=== PATIENT | male | born 1935 | race Caucasian/White ===

== ENCOUNTER → 2017-03-10 | Outpatient (CLI) | payer MEDICARE | LOC: COL.VAS 10:46 | DX: I31.3 Pericardial effusion (noninflammatory) (principal) ==

== ENCOUNTER → 2017-08-15 | Outpatient (CLI) | payer MEDICARE | LOC: MC.RAD 07:12 | DX: N64.4 Mastodynia (principal) ==

== ENCOUNTER 2018-01-21 11:01 | Day surgery (SDC) | payer MEDICARE ==
[~2018-01-21] VITALS: Ht 157.5 cm; Wt 82.1 kg
[2018-01-21] MEDS ORDERED: COREG 25MG25 MG/TAB PO (11:47)
[2018-01-21] MEDS ORDERED: CELEBREX 200MG200 MG PO ×2 (11:49)
[2018-01-21] MEDS ORDERED: LASIX 40MG TABL40 MG PO (11:50)
[2018-01-21] MEDS ORDERED: ASPIRIN 32325 MG/TA1 PO (11:51)
[2018-01-21] MEDS ORDERED: COZAAR100 MG PO (11:52)
[2018-01-21] MEDS ORDERED: K-DUR20 MEQ PO (11:52)
[2018-01-21] MEDS ORDERED: GLUCOPHAGE1000 MG PO (11:53)
[2018-01-21] MEDS ORDERED: CRESTOR5 MG PO (11:53)
[2018-01-21] MEDS ORDERED: NORVASC 5MG5 MG/TAB PO (11:54)
[2018-01-21] MEDS ORDERED: PROSCAR 5MG5 MG PO (11:54)
[2018-01-21] MEDS ORDERED: EPA FISH OIL1 SGL PO (11:55)
[2018-01-21 12:18] LABS: HEMOGLOBIN 12.5 g/dl (13.5-18.0); MEAN CELL VOLUME 93 fl (80.0-100.0); MEAN CORPUSCULAR HEMOGLOBIN 32 pg (27.0-31.0); MEAN CORPUSCULAR HGB CONC 34 g/dl (33.0-37.0); MEAN PLATELET VOLUME 10.2 fl (7.4-10.4); PLATELET COUNT 157 K/mm3 (130-400); RED BLOOD COUNT 3.93 M/mm3 (4.20-5.60); REDCELL DISTRIBUTION WIDTH-CV 12.6 % (11.5-14.5)
[2018-01-21 12:19] LABS: HEMATOCRIT 36.7 % (42.0-52.0)
[2018-01-21 12:28] LABS: INR 1.1 (0.8-3.0); PROTHROMBIN TIME 12.6 SECONDS (9.7-12.8)
[2018-01-21 13:00] VITALS: BP 164/85; PULSE 64; TEMP 97.6
[2018-01-21 13:26] LABS: CALCIUM 9.1 mg/dL (8.4-10.2); CREATININE, serum 0.99 mg/dL (0.66-1.25); POTASSIUM 4.2 mmol/L (3.4-5.0)
[2018-01-21 13:47] VITALS: BP 181/82; PULSE 70
[2018-01-21 15:05] VITALS: BP 154/69; PULSE 78
[2018-01-21 15:35] VITALS: BP 173/80; PULSE 77
[2018-01-21 16:35] VITALS: BP 121/90; PULSE 76
[2018-01-21 20:44] VITALS: BP 124/54; PULSE 64; TEMP 97.4
[2018-01-22 00:52] VITALS: BP 157/64; PULSE 66; TEMP 97.4
[2018-01-22 04:31] VITALS: BP 113/68; BP 153/65; BP 167/70; PULSE 69; PULSE 79; TEMP 98.1; TEMP 98.2
[2018-01-22 07:26] LABS: BASO % 0.4 % (0.0-2.0); EOS # 0.2 (0.0-0.7); EOS % 3.3 % (0-4.0); GRAN # 3.8 (1.4-6.5); GRAN % 68.9 % (42.2-75.2); HEMATOCRIT 37.9 % (42.0-52.0); HEMOGLOBIN 12.6 g/dl (13.5-18.0); LYMPH # 0.9 (1.2-3.4); LYMPH % 16.2 % (20.0-51.0); MEAN CELL VOLUME 92 fl (80.0-100.0); MEAN CORPUSCULAR HEMOGLOBIN 31 pg (27.0-31.0); MEAN CORPUSCULAR HGB CONC 33 g/dl (33.0-37.0); MEAN PLATELET VOLUME 9.7 fl (7.4-10.4); MONO # 0.6 (0.1-0.6); MONO % 10.5 % (1.7-9.3); PLATELET COUNT 147 K/mm3 (130-400); REDCELL DISTRIBUTION WIDTH-CV 12.9 % (11.5-14.5)
[2018-01-22 07:39] LABS: CALCIUM 9.2 mg/dL (8.4-10.2); CREATININE, serum 0.93 mg/dL (0.66-1.25); MAGNESIUM 1.8 mg/dL (1.6-2.3); POTASSIUM 4.3 mmol/L (3.4-5.0)
[2018-01-22 07:42] LABS: INR 1.1 (0.8-3.0); PROTHROMBIN TIME 12.6 SECONDS (9.7-12.8)
[2018-01-22 07:49] VITALS: BP 155/65; PULSE 67; TEMP 97.6
[2018-01-22] MEDS ORDERED: CLEOCIN HCL300 MG PO (10:53)
== END 2018-01-22 12:29 | disposition home or self-care (01) ==
LOC: COL.CAR 11:01 → MEDICAL 15:25 → COL.CAR 01-22 12:29
PROVIDERS: Internal Medicine Cardiovascular Disease
DX: I49.5 Sick sinus syndrome (principal); I48.0 Paroxysmal atrial fibrillation; E11.9 Type 2 diabetes mellitus without complications; E78.5 Hyperlipidemia, unspecified; I25.10 Atherosclerotic heart disease of native coronary artery without angina pectoris; I11.0 Hypertensive heart disease with heart failure; I50.32 Chronic diastolic (congestive) heart failure; Z88.0 Allergy status to penicillin; Z82.49 Family history of ischemic heart disease and other diseases of the circulatory system; Z87.891 Personal history of nicotine dependence
CPT/HCPCS: OP; J2250; J3010; J3370; J7030; J7050

== ENCOUNTER 2019-05-03 12:45 | Outpatient (RCR) | payer MEDICARE ==
[~2019-05-03 12:45] MED LIST: ASPIRIN 32325 MG/TA1 PO; CELEBREX 200MG200 MG PO; CLEOCIN HCL300 MG PO; COREG 25MG25 MG/TAB PO; COZAAR100 MG PO; CRESTOR5 MG PO; EPA FISH OIL1 SGL PO; GLUCOPHAGE1000 MG PO; K-DUR20 MEQ PO; LASIX 40MG TABL40 MG PO; NORVASC 5MG5 MG/TAB PO; PROSCAR 5MG5 MG PO
== END 2019-06-11 16:09 | disposition home or self-care (01) ==
LOC: WSOT 12:45
DX: S62.317A Displaced fracture of base of fifth metacarpal bone, left hand, initial encounter for closed fracture (principal); W19.XXXA Unspecified fall, initial encounter

== ENCOUNTER → 2020-08-03 | Outpatient (CLI) | payer MEDICARE | LOC: COL.RAD 07:50 | DX: J98.6 Disorders of diaphragm (principal); I51.7 Cardiomegaly; Z95.0 Presence of cardiac pacemaker ==

== ENCOUNTER → 2020-08-28 | Outpatient (CLI) | payer MEDICARE | LOC: COL.RAD 13:12 | DX: N18.32 Chronic kidney disease, stage 3b (principal) ==

== ENCOUNTER 2020-12-30 23:25 | Emergency (ER) | payer MEDICARE ==
[~2020-12-30] VITALS: Ht 157.5 cm; Wt 84.5 kg
[2020-12-30 23:34] VITALS: TEMP 98.2
[2020-12-31 00:17] LABS: BASO % 0.3 % (0.0-2.0); EOS # 0.2 K/mm3 (0.0-0.7); GRAN % 71.2 % (42.2-75.2); HEMOGLOBIN 11.3 g/dl (13.5-18.0); LYMPH # 0.9 K/mm3 (1.2-3.4); LYMPH % 13.2 % (20.0-51.0); MEAN CELL VOLUME 90 fl (80.0-100.0); MEAN CORPUSCULAR HEMOGLOBIN 30 pg (27.0-31.0); MEAN CORPUSCULAR HGB CONC 34 g/dl (33.0-37.0); MONO # 0.8 K/mm3 (0.1-0.6); MONO % 11.4 % (1.7-9.3); PLATELET COUNT 198 K/mm3 (130-400); RED BLOOD COUNT 3.72 M/mm3 (4.20-5.60)
[2020-12-31 00:19] LABS: HEMATOCRIT 33.3 % (42.0-52.0)
[2020-12-31 00:34] LABS: ALANINE AMINOTRANSFERASE 18 U/L (0-55); ALBUMIN 3.9 gm/dL (3.4-4.8); ALKALINE PHOSPHATASE 51 U/L (40-150); ANION GAP 14 mmol/L (7-16); AST,SGOT 22 U/L (5-34); BILIRUBIN,TOTAL 0.5 mg/dL (0.2-1.2); BLOOD UREA NITROGEN 25 mg/dL (8-26); CALCIUM 9.6 mg/dL (8.4-10.2); CARBON DIOXIDE 26 mmol/L (23-31); CHLORIDE 100 mmol/L (98-107); CREATININE, serum 1.77 mg/dL (0.72-1.25); GLUCOSE 197 mg/dL (70-99); POTASSIUM 3.9 mmol/L (3.5-4.5); SODIUM 140 mmol/L (136-145); TOTAL PROTEIN 7.6 gm/dL (6.2-8.1)
[2020-12-31 00:44] LABS: TROPONIN-I < 0.010 ng/mL (0.00-0.033)
[2020-12-31 00:46] LABS: COLLECTION METHOD CLEAN CATCH
[2020-12-31 01:12] LABS: PH 7 (5-8); SQUAMOUS EPITHELIAL None Seen /hpf (0-10); URINE APPEARANCE Clear (CLEAR/HAZY); URINE BACTERIA None Seen (NONE SEEN); URINE BILIRUBIN Negative (NEGATIVE); URINE BLOOD Negative (NEGATIVE); URINE COLOR Straw (YELLOW); URINE GLUCOSE Negative (NEGATIVE); URINE KETONE Negative (NEGATIVE); URINE LEUKOCYTE ESTERASE 1+ (NEGATIVE); URINE NITRATE Negative (NEGATIVE); URINE PROTEIN(semi-quant) 1+ (NEGATIVE); URINE RBC 0-2 /hpf (0-2); URINE UROBILINOGEN Negative (NEGATIVE)
[2020-12-31 01:50] VITALS: BP 158/70; PULSE 76
== END 2020-12-31 01:50 | disposition home or self-care (01) ==
LOC: COL.ER 23:25
PROVIDERS: Physician Assistant
DX: I13.0 Hypertensive heart and chronic kidney disease with heart failure and stage 1 through stage 4 chronic kidney disease, or unspecified chronic kidney disease (principal); N18.9 Chronic kidney disease, unspecified; I50.9 Heart failure, unspecified; I16.0 Hypertensive urgency; Z95.0 Presence of cardiac pacemaker; Z87.891 Personal history of nicotine dependence; Z88.8 Allergy status to other drugs, medicaments and biological substances; Z79.82 Long term (current) use of aspirin; Z79.899 Other long term (current) drug therapy
CPT/HCPCS: J0360; J1940; J7030

== ENCOUNTER → 2021-02-06 | Outpatient (CLI) | payer MEDICARE | LOC: COL.RAD 09:46 | DX: R06.02 Shortness of breath (principal) ==

== ENCOUNTER 2022-04-11 12:22 | Day surgery (SDC) | payer MEDICARE ==
[~2022-04-11] VITALS: Ht 157.5 cm; Wt 80.6 kg
[~2022-04-11 12:22] MED LIST changes: +ASPIRIN 81M81 MG/TA2 PO; +BD ALCOHOL1 SWA MC; +CLARITIN D TAB1 TAB PO; +DEMADEX 20MG20 M1 PO; +FREESTYLE PREC1 EAC5 MC; +GLUCAGON EMERGEN1 M1 SQ; +GLUCOSE TEST ST1 DEV MC; +INSULIN PEN NE1 EAC1 MC; +LANCETS MC; +LEVEMIR FLEX100 U/ML SQ; +MONODOX100 PO; +MULTI VITAMINS1 TAB PO; +NOVOLOG FLEX100 U/ML SQ; +PREDNISONE20 MG PO; +SOAANZ40 MG PO; +TRELEGY ELLIPT1 EACH IH; +ZAROXOLYN 2.52.5 MG PO
[2022-04-11 13:27] LABS: HEMOGLOBIN 10.6 g/dl (13.5-18.0); MEAN CELL VOLUME 87 fl (80.0-100.0); MEAN CORPUSCULAR HEMOGLOBIN 29 pg (27-31); MEAN CORPUSCULAR HGB CONC 33 g/dl (33.0-37.0); MEAN PLATELET VOLUME 9.4 fl (7.4-10.4); PLATELET COUNT 251 K/mm3 (130-400); RED BLOOD COUNT 3.72 M/mm3 (4.20-5.60); REDCELL DISTRIBUTION WIDTH-CV 14.6 % (11.5-14.5)
[2022-04-11] MEDS ORDERED: DEMADEX 20MG20 M1 PO (13:29)
[2022-04-11 13:30] LABS: HEMATOCRIT 32.4 % (42.0-52.0)
[2022-04-11] MEDS ORDERED: ZAROXOLYN 2.52.5 MG PO (13:30)
[2022-04-11] MEDS ORDERED: PROBIOTIC DIGE1 EACH PO (13:31)
[2022-04-11] MEDS ORDERED: TRELEGY ELLIPT1 EACH IH (13:32)
[2022-04-11 13:33] VITALS: BP 141/75; PULSE 75; TEMP 97.6
[2022-04-11 13:37] LABS: INR 1.1 (0.8-3.0); PROTHROMBIN TIME 13.1 SECONDS (9.7-12.8)
[2022-04-11 13:38] LABS: CALCIUM 9.5 mg/dL (8.4-10.2); CREATININE, serum 1.96 mg/dL (0.72-1.25); POTASSIUM 3.5 mmol/L (3.5-4.5)
--- NOTE | 2022-04-11 14:30 | NUR ---
Initial visit; Patient thanked [employer] for visit prior to his surgical procedure regarding his pacemaker. [employer] offered encouragement and prayer and wished Andrés well after a short visit. Patient seemed pleased with visit.
[2022-04-11 14:48] VITALS: BP 147/71; PULSE 76
[2022-04-11 17:18] VITALS: BP 147/59; PULSE 78; TEMP 98.6
--- NOTE | 2022-04-11 19:34 | NUR ---
Pt rec'd to room 311 s/p pacemaker lead replacement at approximately 1715. Dressing to pacemaker site CDI. Ice applied. Sling to LUE. Denied pain at that time. Pt reported pain 3-4/10 to site at 1850 and Tylenol order obtained from Dr. Sauer and administered to the pt. Ice refreshed. Assessment and Intake completed.
[2022-04-11 20:17] VITALS: BP 118/50; PULSE 73; TEMP 98.2
--- NOTE | 2022-04-11 22:31 | NUR ---
Patient assessed around 1949. Denies pain and discomfort, stating that the Acetaminophen and ice were helping. Dressing to PM site on left chest CDI. Site without hematomoa. Sling to left arm. Voices no questions, needs, or concerns at this time. In bed with call light within reach. Bed alarm on.
[2022-04-11 23:41] VITALS: BP 115/49; PULSE 73; TEMP 98.2
[2022-04-12 03:35] VITALS: BP 134/55; PULSE 75; TEMP 98.2
--- NOTE | 2022-04-12 06:05 | NUR ---
Patient has denied having pain and discomfort. Voices no questions, needs, or concerns at this time. In bed with call light within reach.
[2022-04-12 08:00] VITALS: BP 140/57; PULSE 75; TEMP 97.4
--- NOTE | 2022-04-12 08:00 | NUR ---
Patient sitting up in bed A&Ox4. VSS. IV CDI. LF arm in sling. Incision site SHELLY chest, CDI free from hematoma. Denies pain and discomfort. Call light within reach
[2022-04-12 09:11] LABS: BASO % 0.4 % (0.0-2.0); EOS # 0.3 K/mm3 (0.0-0.7); EOS % 4.2 % (0.0-4.0); GRAN # 5.4 K/mm3 (1.4-6.5); GRAN % 75.3 % (42.2-75.2); HEMOGLOBIN 10.6 g/dl (13.5-18.0); LYMPH # 0.7 K/mm3 (1.2-3.4); LYMPH % 9.7 % (20.0-51.0); MEAN CELL VOLUME 87 fl (80.0-100.0); MEAN CORPUSCULAR HEMOGLOBIN 28 pg (27-31); MEAN CORPUSCULAR HGB CONC 32 g/dl (33.0-37.0); MEAN PLATELET VOLUME 9.3 fl (7.4-10.4); MONO # 0.7 K/mm3 (0.1-0.6); MONO % 9.8 % (1.7-9.3); PLATELET COUNT 229 K/mm3 (130-400); RED BLOOD COUNT 3.83 M/mm3 (4.20-5.60); REDCELL DISTRIBUTION WIDTH-CV 14.8 % (11.5-14.5)
[2022-04-12 09:12] LABS: HEMATOCRIT 33.2 % (42.0-52.0)
[2022-04-12 09:26] LABS: CREATININE, serum 1.8 mg/dL (0.72-1.25); POTASSIUM 3.3 mmol/L (3.5-4.5)
--- NOTE | 2022-04-12 10:47 | NUR ---
Mixing Machine Tender Cork Rod met with Patient at bedside to conduct Care Managment Assessment and discuss discharge planning. Patient verrified that he lives in a private residence ans is established with PCP Dr. Barkley. Patient reports that his EMRC is his son, Uriel P: [phone]. Patient reports insurance as Medicare/[employer]. Patient denies the use of O2 prior to admission. Patient reports the use of a cane and a walker at home and in the community prior to admission. Patient denies the use of home health services at time. Emilyn declined Advanced Directives at this time. Discharge Plan: Patient intends to discharge home with self-provided transportation.
--- NOTE | 2022-04-12 11:30 | NUR ---
Initial visit: pt was resting and content. Pt stated he has no needs right now. Pt appreciated the visit. [employer] will follow up as needed.
[2022-04-12 12:00] VITALS: BP 125/51; PULSE 72; TEMP 98
[2022-04-12] MEDS ORDERED: CLEOCIN HCL300 MG PO (13:34)
--- NOTE | 2022-04-12 14:23 | NUR ---
Discharge paperwork reviewed with the patient. Patient verbalized an understanding to follow doctors orders. IV removed, tip intact. Gauze and coban applied. LF arm in sling. Patient calling for a ride
--- NOTE | 2022-04-12 14:27 | NUR ---
Patient transfered by wheelchair to awaiting vehicle. Personal belongings and discharge paperwork with the patient
== END 2022-04-12 14:28 | disposition home or self-care (01) ==
LOC: MEDICAL 12:22 → COL.CAR 12:22 → MEDICAL 16:25 → COL.CAR 04-12 14:28
PROVIDERS: Internal Medicine Cardiovascular Disease
DX: T82.110A Breakdown (mechanical) of cardiac electrode, initial encounter (principal); I49.5 Sick sinus syndrome; Y82.8 Other medical devices associated with adverse incidents
CPT/HCPCS: OP; C1894; C1898; J1815; J2250; J3010; J3370; J7050